=== PATIENT | male | born 1995 | race Asian ===

== ENCOUNTER 2017-07-09 10:50 | Emergency (ER) | payer OTHER ==
[~2017-07-09] VITALS: Ht 180.3 cm; Wt 84.8 kg
[2017-07-09 11:05] VITALS: BP 151/67
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
[2017-07-09] MEDS ORDERED: HYDROcodone/APAP 5 MG/325 MG (LORTAB) TAB PO STA (12:40)
[2017-07-09] MEDS ORDERED: IBUPROFEN 800 MG (MOTRIN) TAB PO STA (12:40)
[2017-07-09] MEDS ORDERED: HYDR-3812 PO (12:51)
[2017-07-09] MEDS ORDERED: CYCL10TA9 PO (12:51)
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
== END 2017-07-09 13:03 | disposition home or self-care (01) ==
LOC: ER 10:53
DX: Z04.3 Encounter for examination and observation following other accident (principal)
CPT/HCPCS: 73080; 73562; 99283